=== PATIENT | female | born 1970 | race Hispanic/Latino ===

== ENCOUNTER 2018-01-13 20:15 | Emergency (ER) | payer SELFPAY ==
[2018-01-13] MEDS ORDERED: Ondansetron ODT 4 MG TAB ONE (20:42)
[2018-01-13 20:59] LABS: #Eosinphils 0.1 thou/uL (0.0-0.7); #Lymphocytes 2.1 thou/uL (1.20-3.40); #Monocytes 0.7 thou/uL (0.11-0.59); %Basophils 0.3 % (0.0-1.0); %Eosinophils 0.9 % (0.0-10.0); %Lymphocytes 17.2 % (21.0-51.0); %Monocytes 5.8 % (0.0-10.0); %Neutrophils 75.8 % (42.0-75.0); Hemoglobin 12.6 g/dL (12.0-16.0); Mean Corpuscular HGB CONC 34.7 g/dL (32.0-36.0); Mean Corpuscular Hemoglobin 32.7 pg (27.0-31.0); Mean Corpuscular Volume 94.3 fl (81.0-99.0); Platelet Count 288 thou/uL (130-400); RBC Distribution Width 12.8 % (11.5-14.5); Red Blood Cell (RBC) Count 3.86 mill/uL (4.20-5.40); White Blood Cell (WBC) Count 11.9 thou/uL (4.8-10.8)
[2018-01-13 21:07] LABS: Bilirubin Negative (Negative); Blood, Urine Large (Negative); Clarity CLEAR (Clear); Glucose, Urine (Dipstick) Negative (Negative); Leukocyte Small (Negative); Nitrite Negative (Negative); Protein, Urine (Dipstick) Negative (Neg-Trace); pH, Urine 7.5 (5.0-9.0)
[2018-01-13 21:10] LABS: Bacteria/HPF 3+ HPF (None Seen); Hyaline Casts/LPF 0-3 HYALINE CAST LPF (0-3 Hyaline); RBC/HPF GREATER THAN 50-TNTC HPF (0-3); Squamous Epithelial 0-3 HPF (0-3)
[2018-01-13 21:11] LABS: BHCG - Serum Negative (NEGATIVE); Pregs Control Background? CLEAR/WHITE (CLR/WHITE); Pregs Control Bar Appear? YES (CONTROL BAR)
--- NOTE | 2018-01-13 21:16 | CT ---
CT OF THE ABDOMEN AND PELVIS 01/13/18 COMPARISON: None. HISTORY: Left sided flank pain radiating into the groin. TECHNIQUE: Serial axial CT imaging is obtained at 5 mm intervals from lung bases through pubic symphysis without contrast. Coronal reformatted imaging obtained. FINDINGS: Lack of contrast limits assessment of the viscera, bowel, vascular structures and for lymphadenopathy . The imaged lung bases are unremarkable. No free intraperitoneal air or fluid is seen. Cholecystectomy clips are present. The liver is hypodense, evidence of steatosis. The spleen, pancreas, and adrenal glands are unremarkable. There is a punctate nonobstructing stone w ithin the lower pole of the right kidney. There are two punctate intrarenal calculi on the left as we ll. There is evidence of hydronephrosis and hydroureter on the left secondary to an obstructing stone at the level of the left ureterovesicular junction which measures approximately 4 mm. This stone is best seen on coronal image 97 and axial image 84. No evidence for an obstructing stone is apparent on the right. There are linear metallic structures associated with the region of the fallopian tubes, evidence of c losure devices. Limited assessment of the bowel demonstrates no inflammatory change or evidence of obstruction. The a ppendix appears unremarkable. There is scattered atherosclerotic calcification of the infrarenal abdominal aorta. Osseous structures demonstrate no acute findings. IMPRESSION: Obstructive uropathy on the left secondary to a 3-4 mm stone at the level of the left ureterovesicula r junction. POS: [facility]
[2018-01-13 21:20] LABS: ALT (SGPT) 39 U/L (8-55); AST (SGOT) 38 U/L (5-34); Albumin 3.8 g/dL (3.5-5.0); Alkaline Phosphatase 119 U/L (40-150); Anion Gap 13 mmol/L (10-20); BUN (Urea Nitrogen) 12 mg/dL (7.0-18.7); Bilirubin, Total 0.3 mg/dL (0.2-1.2); Calc. Creatinine Clearance 0 mL/min (70-130); Calcium 9.2 mg/dL (7.8-10.44); Carbon Dioxide 26 mmol/L (22-29); Chloride 103 mmol/L (98-107); Estimated GFR-MDRD 89; Globulin 3.4 g/dL (2.4-3.5); Glucose 125 mg/dL (70-105); Potassium 3.7 mmol/L (3.5-5.1); Protein, Total 7.2 g/dL (6.0-8.3); Sodium 138 mmol/L (136-145)
[2018-01-13] MEDS ORDERED: Ketorolac Tromethamine 30 MG/ML VIAL ONE (21:21)
== END 2018-01-13 22:18 | disposition home or self-care (01) ==
LOC: ERS 20:15
DX: N13.2 Hydronephrosis with renal and ureteral calculous obstruction (principal); E11.9 Type 2 diabetes mellitus without complications; I10 Essential (primary) hypertension; E78.5 Hyperlipidemia, unspecified; F41.9 Anxiety disorder, unspecified; F31.9 Bipolar disorder, unspecified; Z87.442 Personal history of urinary calculi
CPT/HCPCS: 74176; 80053; 81003; 81015; 84703; 85025; 87077; 87086; 87186; 96361; 96374; J1885; Q0162

== ENCOUNTER 2019-07-02 18:01 | Emergency (ER) | payer SELFPAY ==
[2019-07-02] MEDS ORDERED: Lorazepam 2 MG/ML VIAL ONE (18:23)
[2019-07-02 18:55] LABS: Hemoglobin 13.1 g/dL (12.0-16.0); Mean Corpuscular HGB CONC 34.4 g/dL (32.0-36.0); Mean Corpuscular Hemoglobin 32.7 pg (27.0-31.0); Platelet Count 217 thou/uL (130-400); RBC Distribution Width 11.9 % (11.5-14.5); White Blood Cell (WBC) Count 6.4 thou/uL (4.8-10.8)
[2019-07-02 19:19] LABS: ALT (SGPT) 34 U/L (8-55); AST (SGOT) 40 U/L (5-34); Alkaline Phosphatase 105 U/L (40-110); Anion Gap 15 mmol/L (10-20); BUN (Urea Nitrogen) 15 mg/dL (7.0-18.7); Bilirubin, Total 0.3 mg/dL (0.2-1.2); Calc. Creatinine Clearance 0 mL/min (70-130); Calcium 9.2 mg/dL (7.8-10.44); Carbon Dioxide 24 mmol/L (22-29); Chloride 105 mmol/L (98-107); Estimated GFR-MDRD Greater than 90; Globulin 3.6 g/dL (2.4-3.5); Glucose 81 mg/dL (70-105); Potassium 4.5 mmol/L (3.5-5.1); Protein, Total 7.6 g/dL (6.0-8.3); Sodium 139 mmol/L (136-145)
[2019-07-02 19:28] LABS: Eosinophils 1 % (0-10); Lymphocytes 54 % (21-51); MDiff Complete? YES; Monocytes 4 % (0-10); Neutrophil 40 % (42-75); Platelet Morphology Comment Appears Adequate; RBC Morphology Normal; Reactive Lymphocytes 1 % (0-10)
[2019-07-02] MEDS ORDERED: Acetaminophen 500 MG TAB ONE (20:47)
[2019-07-03 18:18] LABS: Lavender RECEIVED; Red RECEIVED
== END 2019-07-02 20:50 | disposition home or self-care (01) ==
LOC: ERS 18:01
DX: R56.9 Unspecified convulsions (principal); E11.9 Type 2 diabetes mellitus without complications; E78.5 Hyperlipidemia, unspecified; I10 Essential (primary) hypertension; F31.9 Bipolar disorder, unspecified; F41.9 Anxiety disorder, unspecified; Z79.899 Other long term (current) drug therapy; Z79.84 Long term (current) use of oral hypoglycemic drugs
CPT/HCPCS: 36415; 80053; 80164; 80185; 85025; 94760; 96374; J2060

== ENCOUNTER 2019-07-03 18:07 | Observation (INO) | payer SELFPAY ==
[2019-07-03 18:25] LABS: Hemoglobin 13.5 g/dL (12.0-16.0); Mean Corpuscular HGB CONC 33.6 g/dL (32.0-36.0); Mean Corpuscular Volume 95.1 fL (78.0-98.0); Mean Platelet Volume 8.4 fL (7.4-10.4); Platelet Count 225 thou/uL (130-400); RBC Distribution Width 11.9 % (11.5-14.5); Red Blood Cell (RBC) Count 4.24 mill/uL (4.20-5.40); White Blood Cell (WBC) Count 7.3 thou/uL (4.8-10.8)
[2019-07-03 18:42] LABS: Bilirubin Negative (Negative); Blood, Urine Negative (Negative); Clarity Clear (Clear); Glucose, Urine (Dipstick) Normal (Negative); Leukocyte 25 Leu/uL (Negative); Nitrite Negative (Negative); Protein, Urine (Dipstick) 20 mg/dL (Neg-Trace); RBC/HPF 0-3 HPF (0-3); Squamous Epithelial 0-3 HPF (0-3); Urobilinogen 3 mg/dL (Less than 2); WBC/HPF 0-3 HPF (0-3)
[2019-07-03] MEDS ORDERED: Fosphenytoin Sodium 500 mg/10 ml Vial ONE (18:44)
[2019-07-03] MEDS ORDERED: Sodium Chloride 0.9% 100 ML ONE (18:44)
[2019-07-03 18:45] LABS: ALT (SGPT) 31 U/L (8-55); AST (SGOT) 39 U/L (5-34); Alkaline Phosphatase 107 U/L (40-110); Anion Gap 14 mmol/L (10-20); BUN (Urea Nitrogen) 14 mg/dL (7.0-18.7); Bilirubin, Total 0.2 mg/dL (0.2-1.2); Calc. Creatinine Clearance 0 mL/min (70-130); Calcium 8.9 mg/dL (7.8-10.44); Carbon Dioxide 23 mmol/L (22-29); Chloride 106 mmol/L (98-107); Estimated GFR-MDRD 82; Globulin 4.1 g/dL (2.4-3.5); Glucose 114 mg/dL (70-105); Potassium 4.8 mmol/L (3.5-5.1); Protein, Total 8.1 g/dL (6.0-8.3); Sodium 138 mmol/L (136-145); Valproic Acid (Depakene) 45.5 ug/mL (50.0-100.0)
[2019-07-03 18:48] LABS: Band 1 % (5-11); Lymphocytes 48 % (21-51); MDiff Complete? YES; Monocytes 9 % (0-10); Neutrophil 40 % (42-75); Platelet Morphology Comment Appears Adequate; RBC Morphology Normal; Reactive Lymphocytes 2 % (0-10)
[2019-07-03 18:50] LABS: Bacteria/HPF Rare-Few HPF (None Seen)
[2019-07-03 18:51] LABS: Amphetamine Not Detected (NotDetected); Barbiturates Screen Detected (NotDetected); Benzodiazepine Screen Detected (NotDetected); Cocaine Metabolite Screen Not Detected (NotDetected); Medtox Control Line Valid? VALID (VALID); Medtox Reader # READER 4; Methadone Not Detected (NotDetected); Methamphetamine Not Detected (NotDetected); Opiate Screen Not Detected (NotDetected); Oxycodone Screen Not Detected (NotDetected); Phencyclidine (PCP) Not Detected (NotDetected); THC/Cannabinoid Screen Not Detected (NotDetected); Tricyclic Screen Not Detected (NotDetected)
--- NOTE | 2019-07-03 19:35 | CT ---
Exam: Head CT without contrast HISTORY: Altered mental status. Seizure. COMPARISON: none FINDINGS: Hemorrhage: No intraparenchymal hemorrhage or extra-axial hematoma. Brain parenchyma: Cortical paredes-white matter differentiation is preserved. No mass effect or midline shift. Basilar cisterns are patent. Ventricular system: Ventricles and sulci are patent and symmetric. Calvarium: Intact. Sinuses and mastoid air cells: Adequate aeration. IMPRESSION: No acute intracranial process.
[2019-07-04 02:24] VITALS: BMI 31.1
[2019-07-04] MEDS ORDERED: Sodium Chloride 0.9% 1,000 ML IV SCH (02:37)
[2019-07-04] MEDS ORDERED: Ondansetron PF 4 MG/2 ML Vial IVP PRN ×2 (02:37→14:42)
[2019-07-04] MEDS ORDERED: Acetaminophen 325 MG TAB PO PRN (02:37)
[2019-07-04] MEDS ORDERED: Ondansetron ODT 4 MG TAB SL PRN (02:37)
[2019-07-04] MEDS ORDERED: Lorazepam 2 MG/ML VIAL SLOW IVP PRN (02:39)
[2019-07-04] MEDS ORDERED: Ondansetron ODT 4 MG TAB PO PRN (14:42)
[2019-07-04] MEDS ORDERED: hydrALAZINE 20 MG/ML VIAL SLOW IVP PRN (14:42)
[2019-07-04] MEDS ORDERED: Dextrose 50% Abboject 50 ML SYRINGE SLOW IVP PRN (15:05)
[2019-07-04] MEDS ORDERED: HumaLOG 300 UNITS/3 ML VIAL SC PRN ×2 (15:05)
[2019-07-04] MEDS ORDERED: Dextrose 5% in Water 1,000 ML IV PRN (15:05)
[2019-07-04] MEDS: metFORMIN 500 MG TAB PO SCH (17:32)
[2019-07-04] MEDS: Propranolol 10 MG TAB PO SCH (20:14)
[2019-07-04] MEDS: levETIRAcetam 500 MG TAB PO SCH (20:14)
[2019-07-04] MEDS: Senokot S 8.6-50 MG TAB PO SCH (20:15)
[2019-07-04] MEDS: Famotidine 20 MG TAB PO SCH (20:15)
[2019-07-04] MEDS: Acetaminophen 500 MG TAB PO PRN (20:47)
[2019-07-04] MEDS ORDERED: Atorvastatin Calcium 10 MG TAB PO SCH (21:00)
--- NOTE | 2019-07-04 22:26 | HP ---
PRIMARY CARE PROVIDER: Terri Zapata. CHIEF COMPLAINT: Question of seizures. HISTORY OF PRESENT ILLNESS: This is a 49-year-old female, who presents to [facility] in transfer from [facility], where patient is a current resident, after recent 5-month correction sentence. The patient with significant history of polysubstance abuse currently at [facility] for 3 months. The patient admits to a history of seizure disorder with multiple seizures over the last 5 to 7 months, on chronic Depakote and phenytoin. The patient states she has been compliant with her medication and was prescribed the medication when she left the correction and was admitted to [facility]. The patient denied any documented fever, chills, recent trauma or injury. The patient states she presented to the emergency room with seizure-like activity and was treated with Ativan and released home on 07/03/2019. The patient admits to headache with shaking episodes and apparently was noted by EMS personnel with 3 seizure-like episodes lasting approximately 15 to 20 seconds on 07/03/2019. The patient received fosphenytoin in the emergency room in addition to IV normal saline and transferred to the Stroke Unit for further evaluation. CT of the brain was performed showing no acute process, and metabolic survey showed a low phenytoin level at 6.1 and a valproic acid level of 45.5. PAST MEDICAL HISTORY: 1. Seizure disorder. 2. Anxiety/depression. 3. Bipolar disorder. 4. History of renal lithiasis. 5. Diabetes mellitus type 2, on oral hypoglycemics. 6. Hyperlipidemia. 7. Hypertension. 8. Polysubstance abuse. 9. Schizophrenia. PAST SURGICAL HISTORY: Status post cholecystectomy. CURRENT MEDICATIONS: 1. Levothyroxine 100 mcg p.o. daily. 2. Aripiprazole 15 mg p.o. daily. 3. Lipitor 10 mg p.o. nightly. 4. Depakote 250 mg p.o. daily. 5. Metformin 1000 mg p.o. b.i.d. 6. Phenytoin 100 mg p.o. daily. 7. Propranolol 10 mg p.o. b.i.d. 8. Sertraline 50 mg p.o. daily. ALLERGIES: NO KNOWN DRUG ALLERGIES. FAMILY HISTORY: Dad with bipolar disorder. Mother with history of diabetes mellitus. SOCIAL HISTORY: Originally from [place], [place]. History of polysubstance abuse including K2, heroin and crack cocaine. Resides at [facility] after recent incarceration for 5 months. No current tobacco or alcohol use. REVIEW OF SYSTEMS: CONSTITUTIONAL: Negative for weight loss or gain, ability to conduct usual activities. SKIN: Negative for rash, itching. EYES: Negative for double vision, pain. ENT/MOUTH: Negative for nose bleeding, neck stiffness, pain, tenderness. CARDIOVASCULAR: Negative for palpitations, dyspnea on exertion, orthopnea. RESPIRATORY: Negative for shortness of breath, wheezing, cough, hemoptysis, fever or night sweats. GASTROINTESTINAL: Negative for poor appetite, abdominal pain, heartburn, nausea, vomiting, constipation, or diarrhea. GENITOURINARY: Negative for urgency, frequency, dysuria, nocturia. MUSCULOSKELETAL: Negative for pain, swelling. NEUROLOGIC/PSYCHIATRIC: Negative for anxiety, depression. ALLERGY/IMMUNOLOGIC: Negative for skin rash, bleeding tendency. Otherwise negative except as stated per HPI. PHYSICAL EXAMINATION: VITAL SIGNS: On admission, blood pressure 111/64, pulse 60, respiratory rate 20, temperature 98 degrees Fahrenheit, and O2 saturation 100% on room air. GENERAL APPEARANCE: This is a 49-year-old female, alert and oriented x3, pleasant, responsive, in no acute distress. HEENT: Pupils are equal, round, reactive to light and accommodation. Extraocular muscles are intact. No scleral icterus. No conjunctival injection. Nares are patent. OP is clear. Teeth in fair repair. NECK: Supple. No cervical adenopathy. No thyromegaly. No carotid bruits. No JVD appreciated. Cervical spine with full active and passive range of motion. No meningeal signs noted. CHEST: Lungs are clear to auscultation bilaterally. CARDIOVASCULAR: S1, S2 without noted murmur, rub, or gallop. ABDOMEN: Rounded, soft with mild tenderness to palpation in the mid epigastric. No palpable mass. Landmarks are difficult to palpate due to patient's body habitus. EXTREMITIES: Warm and dry with fair turgor. No clubbing, cyanosis, or asymmetric edema appreciated. Pulses palpable distally at the dorsalis pedis, posterior tibial, and popliteal arteries bilaterally. Capillary refill less than 2 seconds. NEUROLOGIC: Cranial nerves 2 through 12 are grossly intact. No focal or lateralizing signs appreciated. PERTINENT LABORATORY AND X-RAY FINDINGS: Basic metabolic profile within normal limits. AST 39, ALT of 31, alkaline phosphatase 107, albumin 4.0, prolactin level 9.74. CBC within normal limits. Urinalysis showed trace ketone. Urine drug screen dated 07/03/2019, positive for barbiturates and benzodiazepines. Phenytoin level 6.1. Valproic acid level 45.5. CT of the brain without contrast dated 07/03/2019, showed no acute intracranial process. EKG dated 07/03/2019, by my interpretation shows sinus mechanism with heart rates in the 60s. Normal R-wave progression noted in the precordial leads. Normal axis. No acute ST-T wave changes appreciated. ASSESSMENT AND PLAN: 1. Recurrent seizures. The patient will be observed on the Stroke Unit. Suspected given patient's history of seizure disorder. Check EEG. Consult Neurology Service for any further recommendations. Resume home regimen of Depakote and valproic acid. Check TSH, free T4 level, magnesium. 2. Diabetes mellitus type 2. Resume metformin 1000 mg p.o. b.i.d. Serial Accu-Cheks before meals and at bedtime. Insulin sliding scale for reflexive coverage. 3. Hypertension. Resume propranolol 10 mg p.o. b.i.d. 4. Bipolar disorder. Resume sertraline 50 mg daily and aripiprazole 15 mg daily. 5. Prophylaxis. SCDs while in bed. Pepcid 20 mg p.o. b.i.d.. CODE STATUS: Full. Surrogate medical decision maker not identified. Job ID: [id number]
--- NOTE | 2019-07-04 23:29 | CON ---
DATE OF CONSULTATION: 07/04/2019 CONSULTING PHYSICIAN: Hospitalist Service. IMPRESSION: 1. Chronic seizure disorder. 2. Diabetes. 3. Subtherapeutic dosing secondary to drug interactions. PLAN: 1. Discontinue Depakote. 2. Dilantin 200 mg twice a day. 3. Keppra 500 mg twice a day. 4. Office followup. HISTORY OF PRESENT ILLNESS: Ms. Crooks is a 49-year-old female, who was recently released from [facility]. She has a history of epilepsy dating back 4 years. She had been reasonably well controlled on a combination of Depakote and Dilantin. She presented with a breakthrough seizure. Her Dilantin level was 6.1. Her Depakote level was 45. She is back to her baseline. Her CT scan of the brain was unremarkable. She has noticed a tremor in her left hand and foot for several months now. PAST MEDICAL HISTORY: Otherwise negative. ALLERGIES: NONE. SOCIAL HISTORY: Previous drug use. FAMILY HISTORY: Noncontributory. REVIEW OF SYSTEMS: Ten-system review of systems is otherwise negative. PHYSICAL EXAMINATION: GENERAL: She is a well-nourished, middle-aged woman, in no distress. VITAL SIGNS: Vital signs have been stable. She is afebrile. HEENT: Pupils equal and reactive. Conjunctivae clear. Oropharynx clear. NECK: Supple. No lymphadenopathy. EXTREMITIES: No cyanosis or edema. NEUROLOGIC: She is alert and appropriate. Her speech is fluent and clear. Cranial nerves 2 through 12 are intact. Motor exam shows equal strength without fix or drift. There is a rest tremor present in her left hand. Sensation is equal to touch. Gait is independent. SUMMARY: This is a middle-aged woman with history of epilepsy. She is having complications of her treatment with Depakote, would suggest switching her regimen, and I will be happy to follow up with her as an outpatient. Job ID: [id number]
[2019-07-05] MEDS: Acetaminophen 500 MG TAB PO PRN ×2 (00:18→10:01)
[2019-07-05] MEDS ORDERED: Levothyroxine Sodium 100 MCG TAB PO SCH (06:00)
[2019-07-05 06:33] LABS: Free T4 (Free Thyroxine) 0.71 ng/dL (0.70-1.48); Thyroid Stimulating Hormone 16.8975 uIU/mL (0.35-4.94)
[2019-07-05] MEDS ORDERED: Aripiprazole 15 MG TAB PO SCH (09:00)
[2019-07-05] MEDS: Famotidine 20 MG TAB PO SCH (09:48)
[2019-07-05] MEDS: levETIRAcetam 500 MG TAB PO SCH (09:48)
[2019-07-05] MEDS: metFORMIN 500 MG TAB PO SCH (09:48)
[2019-07-05] MEDS: Senokot S 8.6-50 MG TAB PO SCH (09:48)
[2019-07-05] MEDS: Propranolol 10 MG TAB PO SCH (09:49)
[2019-07-05 11:46] VITALS: BP 123/83; TEMP 98
--- NOTE | 2019-07-06 08:47 | DIS ---
DATE OF ADMISSION: 07/04/2019 DATE OF DISCHARGE: 07/05/2019 DISCHARGE DIAGNOSES: 1. Recurrent seizures, stable. 2. Seizure disorder/epilepsy. 3. Anxiety/depression. 4. Bipolar disorder. 5. Diabetes mellitus type 2. 6. Hypertension, stable. 7. History of polysubstance abuse. CONSULTATIONS: Dr. Earl Sheikh with Neurology Service. PERTINENT LABORATORY AND X-RAY FINDINGS: Basic metabolic profile within normal limits. Magnesium 1.7. AST 39, ALT of 31, alkaline phosphatase 107. TSH 16.9, free T4 0.71, prolactin level 9.74. CBC within normal limits. Urine drug screen positive for barbiturates and benzodiazepines. Phenytoin level 6.1. Valproic acid level 45.5. CT of the brain without contrast dated 07/03/2019 showed no acute intracranial process. HOSPITAL COURSE: The patient was observed on the Stroke Unit after initially presenting with recurrent seizures in the context of known seizure disorder. The patient was noted with subtherapeutic phenytoin and valproic acid levels at the time of admission. The patient did receive initial fosphenytoin infusion with evaluation by the Neurology Service. Current recommendations are to increase the phenytoin dosing to 200 mg b.i.d. and initiate Keppra 500 mg b.i.d. and discontinue Depakote. The patient remained seizure-free during the hospital course and overall clinically stable. I have examined the patient at the time of discharge and discussed followup instructions. The patient verbalized understanding and agreement, ready for discharge on 07/05/2019. DISCHARGE MEDICATIONS: 1. Aripiprazole 15 mg p.o. daily. 2. Lipitor 10 mg p.o. at bedtime. 3. Levothyroxine 100 mcg p.o. daily. 4. Metformin 1000 mg p.o. b.i.d. 5. Propranolol 10 mg p.o. b.i.d. 6. Sertraline 50 mg p.o. daily. 7. Keppra 500 mg p.o. b.i.d. 8. Dilantin suspension 100 mg per 4 mL, 8 mL p.o. b.i.d. FOLLOWUP: The patient may follow up with Dr. Earl Sheikh and to call his office for appointment time and date. The patient will follow up with [facility] Services on 07/08/2019. DISCHARGE CONDITION: Stable. ACTIVITY: Ad-livia. DIET: ADA. CODE STATUS: Full. DISPOSITION: Discharged home, 07/05/2019. Job ID: [id number]
== END 2019-07-05 14:44 | disposition home or self-care (01) ==
LOC: ERS 18:07 → EEVIPCON 07-04 01:50 → 2SE 07-04 01:50
PROVIDERS: ADMIT Internal Medicine; ATTEND Internal Medicine
DX: G40.909 Epilepsy, unspecified, not intractable, without status epilepticus (principal); E11.9 Type 2 diabetes mellitus without complications; I10 Essential (primary) hypertension; F31.9 Bipolar disorder, unspecified; F41.9 Anxiety disorder, unspecified; E78.5 Hyperlipidemia, unspecified; F20.9 Schizophrenia, unspecified; F14.11 Cocaine abuse, in remission; F11.11 Opioid abuse, in remission; F12.11 Cannabis abuse, in remission; Z79.84 Long term (current) use of oral hypoglycemic drugs; Z79.899 Other long term (current) drug therapy
CPT/HCPCS: 36415; 36416; 51701; 70450; 80053; 80164; 80185; 80306; 81003; 81015; 83735; 84146; 84439; 84443; 85025; 90471; 90732; 93005; 94760; 96365; G0009; G0378; J3490; Q2009

== ENCOUNTER 2019-07-09 20:25 | Emergency (ER) | payer SELFPAY ==
--- NOTE | 2019-07-09 21:20 | RAD ---
Portable frontal chest radiograph: 07/09/2019 COMPARISON: None HISTORY: Chest discomfort FINDINGS: Lungs are clear. Heart and mediastinal contours appear within normal limits. IMPRESSION: No acute findings.
[2019-07-09 21:24] LABS: #Eosinphils 0.1 thou/uL (0.0-0.7); #Lymphocytes 3.1 thou/uL (1.20-3.40); #Monocytes 0.6 thou/uL (0.11-0.59); #Neutrophils 3.1 thou/uL (1.40-6.50); %Basophils 0.1 % (0.0-1.0); %Eosinophils 1.5 % (0.0-10.0); %Lymphocytes 45.3 % (21.0-51.0); %Monocytes 8.3 % (0.0-10.0); %Neutrophils 44.9 % (42.0-75.0); Hemoglobin 12.7 g/dL (12.0-16.0); Mean Corpuscular HGB CONC 35.3 g/dL (32.0-36.0); Mean Corpuscular Hemoglobin 33.9 pg (27.0-31.0); Mean Corpuscular Volume 95.9 fL (78.0-98.0); Platelet Count 254 thou/uL (130-400); RBC Distribution Width 12.1 % (11.5-14.5); Red Blood Cell (RBC) Count 3.74 mill/uL (4.20-5.40); White Blood Cell (WBC) Count 6.9 thou/uL (4.8-10.8)
[2019-07-09 21:43] LABS: ALT (SGPT) 31 U/L (8-55); AST (SGOT) 37 U/L (5-34); Albumin 3.9 g/dL (3.5-5.0); Alkaline Phosphatase 101 U/L (40-110); Anion Gap 11 mmol/L (10-20); BUN (Urea Nitrogen) 16 mg/dL (7.0-18.7); Bilirubin, Total 0.3 mg/dL (0.2-1.2); Calc. Creatinine Clearance 0 mL/min (70-130); Calcium 9.4 mg/dL (7.8-10.44); Carbon Dioxide 31 mmol/L (22-29); Chloride 101 mmol/L (98-107); Estimated GFR-MDRD Greater than 90; Globulin 3.5 g/dL (2.4-3.5); Glucose 137 mg/dL (70-105); Lipase 97 U/L (8-78); Potassium 3.8 mmol/L (3.5-5.1); Protein, Total 7.4 g/dL (6.0-8.3); Sodium 139 mmol/L (136-145)
[2019-07-09 21:44] LABS: Acetaminophen Less than 6.0 mcg/mL (10.0-30.0); Alcohol Less than 10 mg/dL (Less than 10); Salicylate Less than 8.0 mg/dL (15.0-30.0)
--- NOTE | 2019-07-09 21:49 | CT ---
Head CT without contrast 07/09/2019: COMPARISON: 07/03/2019 HISTORY: Seizure, altered mental status TECHNIQUE: Axial CT imaging at 5 mm intervals from vertex through skull base without contrast FINDINGS: The visualized paranasal sinuses and mastoid air cells appear grossly unremarkable. There i s an old medial orbital wall fracture on the right. No acute osseous abnormality. No intracranial hemorrhage, midline shift, mass effect, or ventricular enlargement. IMPRESSION: No acute findings.
[2019-07-09 21:57] LABS: Bilirubin Negative (Negative); Blood, Urine Negative (Negative); Clarity Clear (Clear); Glucose, Urine (Dipstick) Normal (Negative); Leukocyte Negative Leu/uL (Negative); Nitrite Negative (Negative); Protein, Urine (Dipstick) Negative (Neg-Trace); Urobilinogen Normal mg/dL (Less than 2)
[2019-07-09 22:12] LABS: Medtox Reader # READER 1
[2019-07-09 22:13] LABS: Amphetamine Not Detected (NotDetected); Barbiturates Screen Detected (NotDetected); Benzodiazepine Screen Not Detected (NotDetected); Cocaine Metabolite Screen Not Detected (NotDetected); Medtox Control Line Valid? VALID (VALID); Methadone Not Detected (NotDetected); Methamphetamine Not Detected (NotDetected); Opiate Screen Not Detected (NotDetected); Oxycodone Screen Not Detected (NotDetected); Phencyclidine (PCP) Not Detected (NotDetected); THC/Cannabinoid Screen Not Detected (NotDetected); Tricyclic Screen Not Detected (NotDetected)
== END 2019-07-09 22:43 | disposition home or self-care (01) ==
LOC: ERS 20:25
DX: R56.9 Unspecified convulsions (principal); E11.9 Type 2 diabetes mellitus without complications; E78.5 Hyperlipidemia, unspecified; I10 Essential (primary) hypertension; F31.9 Bipolar disorder, unspecified; F41.9 Anxiety disorder, unspecified; Z79.899 Other long term (current) drug therapy; Z79.84 Long term (current) use of oral hypoglycemic drugs
CPT/HCPCS: 36415; 70450; 71045; 80053; 80306; 80307; 81003; 83690; 84484; 85025

== ENCOUNTER 2019-07-17 15:59 | Emergency (ER) | payer SELFPAY ==
[2019-07-17] MEDS ORDERED: Acetaminophen 500 MG TAB ONE (16:44)
[2019-07-17 17:18] LABS: #Eosinphils 0.1 thou/uL (0.0-0.7); #Lymphocytes 3.7 thou/uL (1.20-3.40); #Monocytes 0.6 thou/uL (0.11-0.59); #Neutrophils 3.4 thou/uL (1.40-6.50); %Basophils 0.2 % (0.0-1.0); %Eosinophils 0.8 % (0.0-10.0); %Lymphocytes 47.6 % (21.0-51.0); %Monocytes 7.8 % (0.0-10.0); %Neutrophils 43.5 % (42.0-75.0); Hemoglobin 12.2 g/dL (12.0-16.0); Mean Platelet Volume 7.6 fL (7.4-10.4); Platelet Count 270 thou/uL (130-400); RBC Distribution Width 12.1 % (11.5-14.5); Red Blood Cell (RBC) Count 3.69 mill/uL (4.20-5.40); White Blood Cell (WBC) Count 7.8 thou/uL (4.8-10.8)
[2019-07-17 17:44] LABS: ALT (SGPT) 23 U/L (8-55); AST (SGOT) 27 U/L (5-34); Albumin 3.7 g/dL (3.5-5.0); Alkaline Phosphatase 96 U/L (40-110); Anion Gap 11 mmol/L (10-20); BUN (Urea Nitrogen) 15 mg/dL (7.0-18.7); Bilirubin, Total 0.3 mg/dL (0.2-1.2); Calc. Creatinine Clearance 0 mL/min (70-130); Calcium 8.9 mg/dL (7.8-10.44); Carbon Dioxide 30 mmol/L (22-29); Chloride 103 mmol/L (98-107); Dilantin 11.1 ug/mL (10.0-20.0); Estimated GFR-MDRD 90; Globulin 3.4 g/dL (2.4-3.5); Glucose 82 mg/dL (70-105); Potassium 4.5 mmol/L (3.5-5.1); Protein, Total 7.1 g/dL (6.0-8.3); Sodium 139 mmol/L (136-145)
== END 2019-07-17 19:57 | disposition home or self-care (01) ==
LOC: ERS 15:59
DX: R56.9 Unspecified convulsions (principal); E78.5 Hyperlipidemia, unspecified; E11.9 Type 2 diabetes mellitus without complications; F41.9 Anxiety disorder, unspecified; F31.9 Bipolar disorder, unspecified; I10 Essential (primary) hypertension; Z79.899 Other long term (current) drug therapy; Z79.84 Long term (current) use of oral hypoglycemic drugs; Z87.442 Personal history of urinary calculi
CPT/HCPCS: 36415; 80053; 80185; 84146; 85025; 99284

== ENCOUNTER 2019-07-18 20:24 | Emergency (ER) | payer SELFPAY ==
[2019-07-18] MEDS ORDERED: Acetaminophen 500 MG TAB ONE (21:18)
== END 2019-07-18 22:28 | disposition home or self-care (01) ==
LOC: ERS 20:24
DX: R56.9 Unspecified convulsions (principal); E11.9 Type 2 diabetes mellitus without complications; E78.5 Hyperlipidemia, unspecified; I10 Essential (primary) hypertension; F41.9 Anxiety disorder, unspecified; F31.9 Bipolar disorder, unspecified; F17.210 Nicotine dependence, cigarettes, uncomplicated
CPT/HCPCS: 99284

== ENCOUNTER 2019-07-20 19:09 | Emergency (ER) | payer SELFPAY ==
[2019-07-20] MEDS ORDERED: levETIRAcetam 500 MG/100 ML PREMIX BAG ONE (19:41)
[2019-07-20 19:48] LABS: #Basophils 0.1 thou/uL (0.0-0.2); #Eosinphils 0.1 thou/uL (0.0-0.7); #Lymphocytes 3.7 thou/uL (1.20-3.40); #Monocytes 0.6 thou/uL (0.11-0.59); #Neutrophils 3.3 thou/uL (1.40-6.50); %Basophils 1.1 % (0.0-1.0); %Eosinophils 0.8 % (0.0-10.0); %Lymphocytes 48.7 % (21.0-51.0); %Monocytes 7.1 % (0.0-10.0); %Neutrophils 42.3 % (42.0-75.0); Hemoglobin 12.7 g/dL (12.0-16.0); Mean Corpuscular Hemoglobin 33.6 pg (27.0-31.0); Mean Corpuscular Volume 95.9 fL (78.0-98.0); Mean Platelet Volume 7.7 fL (7.4-10.4); Platelet Count 243 thou/uL (130-400); RBC Distribution Width 12.1 % (11.5-14.5); Red Blood Cell (RBC) Count 3.78 mill/uL (4.20-5.40); White Blood Cell (WBC) Count 7.7 thou/uL (4.8-10.8)
[2019-07-20 19:53] LABS: Bacteria/HPF None Seen HPF (None Seen); Bilirubin Negative (Negative); Blood, Urine Negative (Negative); Clarity Clear (Clear); Glucose, Urine (Dipstick) Normal (Negative); Leukocyte 75 Leu/uL (Negative); Nitrite Negative (Negative); Protein, Urine (Dipstick) Negative (Neg-Trace); RBC/HPF 0-3 HPF (0-3); Squamous Epithelial 0-3 HPF (0-3); Urobilinogen Normal mg/dL (Less than 2); WBC/HPF 0-3 HPF (0-3)
[2019-07-20 19:54] LABS: Pregnancy Test - Urine (BHCG) Negative (Negative); Pregu Control Background? CLEAR/WHITE (CLR/WHITE); Pregu Control Bar Appear? YES (CONTROL BAR); Specific Gravity 1.016 (1.002-1.036)
[2019-07-20 20:01] LABS: Amphetamine Not Detected (NotDetected); Barbiturates Screen Detected (NotDetected); Benzodiazepine Screen Not Detected (NotDetected); Cocaine Metabolite Screen Not Detected (NotDetected); Medtox Control Line Valid? VALID (VALID); Medtox Reader # READER 4; Methadone Not Detected (NotDetected); Methamphetamine Not Detected (NotDetected); Opiate Screen Not Detected (NotDetected); Oxycodone Screen Not Detected (NotDetected); Phencyclidine (PCP) Not Detected (NotDetected); THC/Cannabinoid Screen Not Detected (NotDetected); Tricyclic Screen Not Detected (NotDetected)
[2019-07-20 20:08] LABS: ALT (SGPT) 28 U/L (8-55); AST (SGOT) 30 U/L (5-34); Albumin 3.7 g/dL (3.5-5.0); Alkaline Phosphatase 112 U/L (40-110); Anion Gap 13 mmol/L (10-20); BUN (Urea Nitrogen) 14 mg/dL (7.0-18.7); Bilirubin, Total 0.2 mg/dL (0.2-1.2); Calc. Creatinine Clearance 0 mL/min (70-130); Calcium 8.9 mg/dL (7.8-10.44); Carbon Dioxide 25 mmol/L (22-29); Chloride 106 mmol/L (98-107); Estimated GFR-MDRD Greater than 90; Globulin 3.4 g/dL (2.4-3.5); Glucose 128 mg/dL (70-105); Potassium 4.2 mmol/L (3.5-5.1); Protein, Total 7.1 g/dL (6.0-8.3); Sodium 140 mmol/L (136-145)
== END 2019-07-20 20:51 | disposition home or self-care (01) ==
LOC: ERS 19:09
DX: R56.9 Unspecified convulsions (principal); E11.9 Type 2 diabetes mellitus without complications; E78.5 Hyperlipidemia, unspecified; I10 Essential (primary) hypertension; F41.9 Anxiety disorder, unspecified; F31.9 Bipolar disorder, unspecified; Z87.891 Personal history of nicotine dependence
CPT/HCPCS: 36415; 80053; 80185; 80306; 81003; 81015; 81025; 85025; 96365; J1953

== ENCOUNTER 2019-07-24 10:05 | Emergency (ER) | payer SELFPAY ==
[2019-07-24] MEDS ORDERED: Acetaminophen 500 MG TAB ONE (10:38)
== END 2019-07-24 10:43 | disposition home or self-care (01) ==
LOC: ERS 10:05
DX: G40.909 Epilepsy, unspecified, not intractable, without status epilepticus (principal); E11.9 Type 2 diabetes mellitus without complications; E78.5 Hyperlipidemia, unspecified; I10 Essential (primary) hypertension; F41.9 Anxiety disorder, unspecified; F31.9 Bipolar disorder, unspecified; Z87.891 Personal history of nicotine dependence; Z87.442 Personal history of urinary calculi
CPT/HCPCS: 99284

== ENCOUNTER 2019-07-29 22:13 | Emergency (ER) | payer SELFPAY ==
[2019-07-29] MEDS ORDERED: Acetaminophen 500 MG TAB ONE (22:32)
== END 2019-07-29 22:50 | disposition home or self-care (01) ==
LOC: ERS 22:13
DX: R56.9 Unspecified convulsions (principal); E78.5 Hyperlipidemia, unspecified; E11.9 Type 2 diabetes mellitus without complications; I10 Essential (primary) hypertension; F41.9 Anxiety disorder, unspecified; F31.9 Bipolar disorder, unspecified; Z87.891 Personal history of nicotine dependence; Z87.442 Personal history of urinary calculi; Z79.899 Other long term (current) drug therapy
CPT/HCPCS: 99284

== ENCOUNTER 2019-08-04 21:20 | Emergency (ER) | payer SELFPAY ==
[2019-08-05] MEDS ORDERED: Acetaminophen 500 MG TAB ONE (00:11)
== END 2019-08-05 00:37 | disposition home or self-care (01) ==
LOC: ERS 21:20
DX: G40.909 Epilepsy, unspecified, not intractable, without status epilepticus (principal); E78.5 Hyperlipidemia, unspecified; I10 Essential (primary) hypertension; F41.9 Anxiety disorder, unspecified; F31.9 Bipolar disorder, unspecified; Z87.891 Personal history of nicotine dependence; Z79.899 Other long term (current) drug therapy
CPT/HCPCS: 99284